=== PATIENT | male | born 1965 | race Caucasian/White ===

== ENCOUNTER 2016-09-14 02:49 | Inpatient (IN) | payer MEDICAID ==
[2016-09-14 03:09] LABS: % IMMATURE GRANULYOCYTES 0.6 % (0.0-1.1); ABSOLUTE IMMATURE GRANULOCYTES 0.05 10^3/uL (0.00-0.10); ADD DIFF? NO; ADD MORPH? NO; ADD SCAN? NO; ATYPICAL LYMPHOCYTE FLAG 30 (0-99); FRAGMENT RBC FLAG 0 (0-99); HEMATOCRIT 44.1 % (40.0-51.0); HEMOGLOBIN 15.2 g/dL (13.7-17.5); LEFT SHIFT FLG 0 (0-99); LIPEMIA HEMOLYSIS FLAG 90 (0-99); MEAN CELL HEMOGLOBIN 29.9 pg (27.9-34.1); MEAN CELL HEMOGLOBIN CONCENTR. 34.5 g/dL (32.4-36.7); MEAN CELL VOLUME 86.6 fL (81.5-99.8); MEAN PLATELET VOLUME 9.2 fL (8.7-11.7); PLATELET CLUMPS FLAG 10 (0-99); PLATELET COUNT 295 10^3/uL (150-400); RED BLOOD CELL COUNT 5.09 10^6/uL (4.40-6.38); RED CELL DISTRIBUTION WIDTH 13.2 % (11.5-15.2)
--- NOTE | 2016-09-14 03:15 | CPEKG ---
Heart Rate: 52 RR Interval: 1154 P-R Interval: 168 QRSD Interval: 96 QT Interval: 464 QTC Interval: 432 P Monclova: -13 QRS Monclova: 48 T Wave Monclova: 54 EKG Severity - ABNORMAL ECG - EKG Impression: SINUS RHYTHM EKG Impression: PROBABLE LEFT VENTRICULAR HYPERTROPHY Electronically Signed By: Jose Roberto Almanza 14-Sep-2016 06:00:29
[2016-09-14 03:17] LABS: ANION GAP 13 mEq/L (8-16); CALCIUM 9.7 mg/dL (8.5-10.4); CARBON DIOXIDE 28 mEq/l (22-31); CHLORIDE 100 mEq/L (97-110); ETHANOL SERUM < 10 mg/dL (0-10); GLOMERULAR FILTRATION RATE > 60; GLUCOSE 81 mg/dL (70-100); POTASSIUM 3.8 mEq/L (3.5-5.2); SODIUM 141 mEq/L (134-144)
--- NOTE | 2016-09-14 03:19 | EDPHY ---
HPI/HX/ROS/PE/MDM Narrative: Chief complaint: Depression, suicidal ideation, chest pain HPI: 51-year-old male recently admitted to this hospital for mental health admission for suicidal ideation. He was discharged on the of last month. He states he has a history of schizophrenia a and hallucinations. He lost his medications about a week ago. He was discharged from his recent admission on Lexapro 10 mg a day, Seroquel 150 mg at night. He also has a history of a pulmonary embolism diagnosed in June of last year for which he should be taking Eliquis 5 mg twice a day. Patient states he has not taken this for over a week as well. This morning he was feeling increasingly depressed and suicidal. States he is hearing voices that are telling him to harm himself. He states he has a plan to use a box office manager to slit his throat. While he was getting more distraught he began having discomfort in his chest which is similar to his prior PE pain. No fevers or chills. No cough. Did have a little bit of shortness of breath. ROS: 10 point Review of Systems is negative except as noted in the HPI. Past medical history: Hepatitis-C Substance abuse disorder Adjustment Disorder Pulmonary embolus Aortic valve disease Medications: Lexapro 10 mg daily, Seroquel 150 mg at night, Eliquis 5 mg twice a day. Allergies: No known drug allergies Physical exam: Gen: Awake, Alert, No Distress HEENT: Nose: no rhinorrhea Eyes: PERRLA, EOMI Mouth: Moist mucosa Neck: Supple, no JVD Chest: nontender, lungs clear to auscultation Heart: S1, S2 normal, no murmur Abd: Soft, non-tender, no guarding Back: no CVA tenderness, no midline tenderness Ext: no edema, non-tender Skin: no rash Neuro: CN II-XII intact, Sensation grossly intact, Strength 5/5 in bilateral upper and lower extremities (Jose Roberto Almanza) 1500: The patient is signed out to me at change of shift by Dr. Diogenes Arreola. I reviewed the chart. I went and personally evaluated the patient. At time of transfer care the patient was stable. No new complaints. I rechecked the patient on numerous occasions while here. He was stable throughout his stay. On recheck the patient was stable. I discussed the need for Eliquis with the nursing staff. 2300: The patient is signed out at change of shift to Dr. Lin. Patient will need ongoing twice daily dosing of Eliquis. (Jalyn Garrison) ED Course: EC sinus rhythm, normal axis, normal intervals, no acute ST or T-wave changes, are was consistent with possible LVH. Pt ECG, trop are negative. No evidence of acute cardiac cause of his pain. I suspect is related to his depression. He is medically cleared. 0530 patient seen by mental health pattern developer. Patient is actively suicidal. Was recently discharged from [address] [place] [address]. Plan will be to likely readmit in to that facility. I have signed the M1 hold. 0640 Pt s/o to Dr. Arreola pending placement. (Jose Roberto Almanza) Care assumed at 640am plan admit psych. Patient does not have current symptoms suggesting recurrent pulmonary embolism. Restarted on his Eliquis at 1:00 p.m.; will need 10 mg orally twice daily for 7 days and then transition to 5 mg dosing. Patient personally interviewed by myself at this time, says he has been off his anticoagulants for 10 days to 2 weeks. Restarting them discussed with the patient and consented. He tells me he was supposed to be on it for 6 months[address] Signed out to Dr. Jalyn Garrison at 3:00 p.m. with inpatient psychiatric placement pending. He will need additional dose 10 mg Eliquis later tonight. I wrote him for 10 mg p. o. twice daily at 9:00 a.m. and 2100. (Diogenes Arreola) MDM: This patient was seen by mental health and felt appropriate for inpatient disposition. There was a substantial concern regarding malingering during his past admission as well as his presentation today. However, after careful consideration, mental health felt that should be admitted for psychiatric reasons. 3:00 p.m.-this patient was signed over to Dr. Garrison at shift change. Disposition pending. (Flory Sandoval) - Data Points Laboratory Results: Laboratory Results 09/14/16 02:55 09/14/16 02:55 Medications Given: Discontinued Medications Apixaban (Eliquis) 10 mg PO EDNOW ONE Stop: 09/14/16 13:08 Last Admin: 09/14/16 13:55 Dose: 10 mg General Time Seen by Provider: 09/14/16 02:56 Initial Vital Signs: Initial Vital Signs Temperature (C) 36.6 C 09/14/16 03:00 Heart Rate 53 L 09/14/16 03:00 Respiratory Rate 18 09/14/16 03:00 Blood Pressure 134/101 H 09/14/16 03:00 O2 Sat (%) 98 09/14/16 03:00 O2 Delivery Mode Room Air Allergies/Adverse Reactions: No Known Allergies Allergy (Verified 07/10/16 14:30) Home Medications: Medication Instructions Recorded Apixaban [Eliquis] 5 mg PO BID #30 tab 09/05/16 Escitalopram Oxalate [Lexapro 10 10 mg PO DAILY #30 tab 09/05/16 MG] QUEtiapine FUMARATE [Seroquel 100 150 mg PO HS #30 tab 09/05/16 mg (*)] Departure - Departure Clinical Impression: Severe major depression, Suicidal ideation Condition: Fair Referrals: IN STATE,. [Primary Care Provider] - As per Instructions
[2016-09-14 03:28] LABS: TROPONIN I < 0.012 ng/mL (0-0.034)
[2016-09-14] MEDS ORDERED: APIXABAN 5 MG TAB PO ONE (13:07)
[2016-09-14] MEDS: APIXABAN 5 MG TAB PO SCH (22:34)
[2016-09-15] MEDS: APIXABAN 5 MG TAB PO SCH ×2 (09:29→20:29)
[2016-09-16] MEDS: APIXABAN 5 MG TAB PO SCH ×2 (10:00→21:00)
[2016-09-17] MEDS: APIXABAN 5 MG TAB PO SCH ×2 (15:51→20:54)
[2016-09-17] MEDS ORDERED: QUEtiapine FUMARATE 50 MG TAB PO PRN (19:00)
[2016-09-17] MEDS ORDERED: MAGNESIUM HYDROXIDE 30 ML UDCUP PO PRN (19:02)
[2016-09-17] MEDS ORDERED: ACETAMINOPHEN 325 MG TAB PO PRN (19:02)
[2016-09-17] MEDS ORDERED: NICOTINE POLACRILEX 2 MG GUM B PRN (19:02)
[2016-09-17] MEDS ORDERED: MAG HYDROX/AL HYDROX/SIMETH 30 ML UDCUP PO PRN (19:02)
[2016-09-17] MEDS: QUEtiapine FUMARATE 200 MG TAB PO SCH (20:54)
[2016-09-18] MEDS: buPROPion XL 150 MG TAB PO SCH (09:12)
[2016-09-18] MEDS: APIXABAN 5 MG TAB PO SCH ×2 (09:13→20:58)
[2016-09-18] MEDS: QUEtiapine FUMARATE 200 MG TAB PO SCH (20:59)
--- NOTE | 2016-09-19 02:03 | BAPA ---
[f rep st] ADMISSION PSYCHIATRIC ASSESSMENT DATE OF SERVICE: 09/18/2016 CHIEF COMPLAINT: "To go to groups and get the help I need this time." HISTORY OF PRESENT ILLNESS: The patient is a 51-year-old , homeless, unemployed male, who was at the [facility] intermediate a few days ago, and awakened with voices and increasing suicidal ideations. He apparently walked to the [facility] and complained of difficulty breathing and chest pains, asking someone there to call 911. Upon arrival to [facility] ED, he reported having suicidal ideation and was placed on an M1 hold on September 14, 2016. He continued to voice suicidal ideation, stating he hid a knife when he left the intermediate, and planned to kill himself if discharged. He was recently discharged from inpatient psychiatry [address] [place] [address] on September 05 without medications, and states he was instructed to follow up with [facility] the following day. He report showing up, but "no one knew about it," and has since stayed in shelters off medication and with no followup. He admitted using cocaine and, unlike on previous admission (when he refused to acknowledge a substance use problem, stating it was a symptom of his primary depression problem), on current interview, patient stated he was ready to get the help he needed for his substance use because cocaine was a problem. He admitted using cocaine not just when depressed, but also at times when he is feeling good, and has not been able to successfully maintain sobriety from substances. "I deal with addiction, it's never a lot, but it worsens my spiral. " He admits that, "If I don't deal with my addiction, I won't get better." He does report have suicidal thoughts and voices telling him to harm himself. 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 He denied feeling depressed during this time, nor using substances, but now feels his spirituality is no longer a strength. He talked of how could God allow a 7-year-old in a pond exposed in the news recently. He said previously that his parents were very judaism, and the only thing that had prevented him from committing suicide in the past was a belief that that would subject you to Hell for all eternity, "But I don't believe that anymore...I'm not going to be a liability." Due to his history of poor engagement in treatment and apparent malingering, he was not admitted upon initial presentation to the emergency room. He was there since September 14, 2016, and is currently on his second mental health hold, initiated September 17, 2016, at 0840. ED staff was unable to discharge him due to his self-harm threats. Patient reported sleep was irregular, mood was depressed. In discussing medications, he stated, "You can get my meds for my mind and heart rate, but as there is no place to lay my head, I am not able to function or work." He is also adding that he recognizes his substance use has caused many of his problems including affecting his mood. PAST PSYCHIATRIC HISTORY: Per [facility] evaluation having been hospitalized multiple times, including 3 inpatient and 2 [facility] stays in the past 4 months. Reports prior suicide attempts including overdosed on Wellbutrin this past summer. Most recently he was discharged with Seroquel 150 mg p.o. q.h.s. and Lexapro 10 mg daily, but reportedly did not fill these prescriptions after discharge. Most recently discharged from [address] [place] [address] on September 05, 2016. He participated minimally in treatment during his hospital stay. He is an [facility] client who sees Dr. Hillman and Corrie Ricks for therapy through [facility], but has missed several appointments in the past. PAST MEDICAL HISTORY: Recent pulmonary embolus, inpatient at [facility] in June 2016, was taking medication for this, Eliquis, but not compliant recently. SOCIAL HISTORY: . Unemployed. Some college. Homeless. In [place] since 2004 from [place]. Has been x15 years. 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 History of working 2 full-time jobs and doing well, making $39 per hour, but lost everything once he lost his job. Minimal social support. Does maintain contact with one son who is in [place], by text messaging. LEGAL: No reported current legal issues. Last arrested for drug possession in 2009. SUBSTANCE USE HISTORY: Marijuana, cocaine. Denied alcohol or other substance use. MENTAL STATUS EXAM: On admission, patient was calm, cooperative, with fair to good eye contact. Normal volume and rate of speech. Edentulous. Mood was depressed. Affect was restricted. Thought processes linear and goal directed. No flight of ideas or tangentiality. Thought content: Patient endorses suicidal ideation 9 out of 10, but denied any plan to harm self. Failed to endorse auditory hallucination, chronic, intermittent, but did not appear responding to internal stimuli; denied any HI or other psychotic symptoms. No evidence of delusions. Insight fair, good into substance use being a problem. Judgement limited. Cognition seemed conversationally intact. He was alert and oriented x4. IMPRESSION: A 51-year-old , homeless, unemployed male who was recently discharged from inpatient psychiatry, but was noncompliant with medications, and presented to the emergency department medically, but then reported suicidal ideation with plan and intent. He was placed on 2 [id number] M-1 holds, as no one was able to place him anywhere or discharge him due to his suicidal threats. Drug screen was positive for marijuana and cocaine on admission on September 14, 2016, to the emergency department, although during previous hospitalization, patient reported depression was his primary problem, he readily stated, "I have a problem with drug addiction," and wants to get help for this as well. Although patient is with clear secondary gain for hospitalization due to his homelessness, he does consistently report suicidal ideation and having a plan, and will likely chronically be at risk for self-harm , especially with poor followup and active substance use. He is currently willing to restart medication, and at time of interview already reported attending 2 groups. Presentation again concerning for secondary gain, but expresses motivation to engage in treatment "this time," and also to address substance use as a problem which he previously denied was an issue. DIAGNOSIS: Cocaine use disorder Depression unspecified history of PE homeless, financial stress, limited social supports. PLAN: Patient is on M1 hold. Anticipate patient would have no problem signing in as a voluntary patient. Will restart Seroquel at that time for now. Will need to assess patient's motivation for continuing with medications post discharge, and whether it makes any sense to continue with regularly scheduled medications given his history. He is expressing motivation for dual-diagnosis treatment at this time. ESTIMATED LENGTH OF STAY: 2 to 3 days. /[id number]/MODL MTDD
[2016-09-19] MEDS: buPROPion XL 150 MG TAB PO SCH (09:10)
[2016-09-19] MEDS: APIXABAN 5 MG TAB PO SCH ×2 (09:11→20:52)
[2016-09-19] MEDS: hydrOXYzine HCL 25 MG TAB PO PRN (10:11)
--- NOTE | 2016-09-19 10:59 | SOAPPROG ---
SOAP Progress Note Assessment/Plan: Assessment: Pt is a 51 y/o C male with a hx of cocaine dependence. This is his 3rd admission while homeless for SI and AH with a strong suspicion of malingering. Last 2 times he stayed in bed the whole time and the last admission he minimized he substance abuse problem and did not participate in any group and did not tack picker his Rx's when he left. He was again + for THC and Cocaine. Plan:con't current meds Pt will sign in vol 09/19/16 10:56 Subjective: "Depressed." Objective: Vital Signs Temp Pulse Resp BP Pulse Ox 36.6 C 57 L 12 135/82 H 94 09/19/16 05:43 09/19/16 05:43 09/19/16 05:43 09/19/16 05:43 09/19/16 05:43 09/18/16 09/19/16 09/20/16 05:59 05:59 05:59 Intake Total 1000 Balance 1000 Pt is A+O x4 mood-depressed affect-appr +SI but contracts for safety thoughts-logical, coherent thoughts-negative speech-wnl memory-intact [id number] appetite-good energy-fair no delusions no ISABELA I/J-limited - Time Spent With Patient Time Spent With Patient: 25' - Pending Discharge Pending Discharge Within 24 Hours: No Pending Discharge Within 48 Hours: No ICD10 Worksheet Patient Problems: Problems Problem Status Diagnosed Severe major depression Acute Suicidal ideation Acute Adjustment disorder with depressed mood Acute Attempted suicide Acute Polysubstance abuse Acute Pulmonary embolism Acute
[2016-09-19] MEDS: QUEtiapine FUMARATE 200 MG TAB PO SCH (20:53)
[2016-09-20 06:22] VITALS: TEMP 98.2; O2SAT 93
[2016-09-20] MEDS: buPROPion XL 150 MG TAB PO SCH (09:46)
[2016-09-20] MEDS ORDERED: QUEtiapine FUMARATE 200 MG TAB PO SCH (10:49)
--- NOTE | 2016-09-20 10:53 | SOAPPROG ---
SOAP Progress Note Assessment/Plan: Assessment: Pt is a 51 y/o C male with a hx of cocaine dependence. This is his 3rd admission while homeless for SI and AH with a strong suspicion of malingering. Last 2 times he stayed in bed the whole time and the last admission he minimized he substance abuse problem and did not participate in any group and did not shredder picker his Rx's when he left. He was again + for THC and Cocaine. Plan: will continue Wellbutrin-pt looks much brighter today Pt is vol pt requests to shave-will D/C SP and write shave order Will decrease Seroquel to 150mg QHS which is previous dose will add Prazosin 2mg QHS for PTSD related nightmares 09/20/16 10:50 Subjective: "I'm tired of feeling sorry for myself," said pt smiling Objective: Vital Signs Temp Pulse Resp BP Pulse Ox 36.8 C 63 16 137/89 H 93 09/20/16 06:00 09/20/16 06:00 09/20/16 06:00 09/20/16 06:00 09/20/16 06:00 Pt is A+O x4 mood-brighter no active SI or HI no A/V H thoughts-logical speech-wnl memory-intact no sx psychosis/bryan sleep-poor due to nightmares +sedation from Seroquel at night good appetite conc-improving no ISABELA I/J-improving - Time Spent With Patient Time Spent With Patient: 25' - Pending Discharge Pending Discharge Within 24 Hours: No Pending Discharge Within 48 Hours: No ICD10 Worksheet Patient Problems: Problems Problem Status Diagnosed Severe major depression Acute Suicidal ideation Acute Adjustment disorder with depressed mood Acute Attempted suicide Acute Polysubstance abuse Acute Pulmonary embolism Acute
[2016-09-20] MEDS: APIXABAN 5 MG TAB PO SCH ×2 (10:54→20:48)
[2016-09-20] MEDS: hydrOXYzine HCL 25 MG TAB PO PRN (15:32)
[2016-09-20] MEDS ORDERED: QUEtiapine FUMARATE 50 MG TAB PO SCH (21:00)
[2016-09-20] MEDS ORDERED: QUEtiapine FUMARATE 100 MG TAB PO SCH (21:00)
[2016-09-20] MEDS ORDERED: PRAZOSIN HCL 1 MG CAP PO SCH (21:00)
[2016-09-21] MEDS: hydrOXYzine HCL 25 MG TAB PO PRN (03:46)
[2016-09-21 06:25] VITALS: BP 124/60; PULSE 79; RESP 14
[2016-09-21] MEDS: APIXABAN 5 MG TAB PO SCH ×2 (09:02→11:32)
[2016-09-21] MEDS: buPROPion XL 150 MG TAB PO SCH (09:03)
[2016-09-21] MEDS ORDERED: APIXABAN 5 MG TAB PO ONE (11:00)
--- NOTE | 2016-09-21 13:17 | BDS ---
[ rep st] BEHAVIORAL HEALTH DISCHARGE SUMMARY CHIEF COMPLAINT: "To go to groups and get the help I need this time." HISTORY OF PRESENT ILLNESS: Patient is a 51-year-old , homeless, unemployed male who was at the [facility] a few days prior to admission and reported he awakened with voices and increasing suicidal ideation. He apparently walked to the [facility] and complained of difficulty breathing and chest pain, asking someone there to call 911. Upon arrival to the [facility] ED, he reported having suicidal ideation and was placed on an M1 hold on September 14, 2016. He continued to voice suicidal ideation, stating he had a knife when he left the [facility] and planned to kill himself if released. He was recently discharged from our inpatient facility, [address] [place] [address], on September 05 without medication. The patient was given prescriptions but refused to pick them up when he left the unit. He stated that he was not given medication and did not follow up at [facility]. Patient has a history of cocaine addiction, and this time the patient stated he was ready to get help and admit he has a cocaine problem. The patient finally admitted that he uses cocaine not only when he is depressed, but at times when he is feeling good, and has been not able to successfully maintain sobriety from substances and this time he would attend groups and work on his treatment. HOSPITAL COURSE: The patient did attend groups this time. He admitted he had a cocaine problem and that he used even when he was not depressed. He was put back on Wellbutrin 300 mg daily and Seroquel 200 mg q.h.s. for auditory, hallucinations which was decreased to 150 mg at h.s. He was also put on prazosin 2 mg q.h.s. for trauma-related nightmares. His mood improved significantly. He signed in voluntarily when his M1 . Then upon the day of discharge, he requested discharge. He was smiling, with a positive attitude and mood and stated he was ready to go and that he wanted to go back to work. CBC was normal. Chem panel was normal. U tox was positive for cocaine and marijuana. DISCHARGE MEDICATIONS: Wellbutrin 300 mg daily, Eliquis 10 mg q.12 hours, prazosin 2 mg q.h.s., Seroquel 150 mg q.h.s., and hydroxyzine 20-50 mg q.6 hours p.r.n. anxiety. The patient was told to abstain from cocaine, alcohol, marijuana, and all other nonprescription medications. ADMISSION DIAGNOSES: 1. Substance-induced mood disorder. 2. Posttraumatic stress disorder by history. 3. Cocaine and cannabis use disorder, severe. 4. Patient with a history of pulmonary embolus, currently on Eliquis. DISCHARGE DIAGNOSES: SAME ABOVE Global Assessment of Functioning on admission was 20. Global Assessment of Functioning on discharge was 60. DISCHARGE MENTAL STATUS: Patient is alert and oriented x4. Mood is bright. Affect is appropriate. Thoughts logical and coherent. Speech normal rate and rhythm. No suicidal or homicidal ideation. No auditory or visual hallucinations. No symptoms of psychosis or bryan. Sleep, appetite, and energy level are good. IQ, fund of knowledge, concentration, and memory are intact. No suicidal or homicidal ideation. No auditory or visual hallucinations. Insight and judgment are improved since admission. PLAN: The patient will follow up with [facility]. He is discharged voluntarily. He states he has an appointment set up and will either be staying at the [facility] or with people he knows. He is psychiatrically and medically stable for discharge. /[id number]/MODL MTDD
[2016-09-21] MEDS ORDERED: APIXABAN 5 MG TAB PO SCH (21:00)
== END 2016-09-21 13:15 | disposition home or self-care (01) | DRG 897 ==
LOC: EDUNIT# → BBEH 09-17 02:48
PROVIDERS: ADMIT Psychiatry & Neurology Behavioral Neurology & Neuropsychiatry; ATTEND Psychiatry & Neurology Psychiatry
DX: F14.24 Cocaine dependence with cocaine-induced mood disorder (principal); F14.229 Cocaine dependence with intoxication, unspecified; F12.188 Cannabis abuse with other cannabis-induced disorder; F12.229 Cannabis dependence with intoxication, unspecified; R45.851 Suicidal ideations; F43.12 Post-traumatic stress disorder, chronic; Z86.711 Personal history of pulmonary embolism; Z79.01 Long term (current) use of anticoagulants; Z59.0 Homelessness
CPT/HCPCS: 80305; G0480

== ENCOUNTER 2016-09-27 02:06 | Emergency (ER) | payer MEDICAID ==
--- NOTE | 2016-09-27 02:08 | EDPHY ---
H & P HPI/ROS: HPI CHIEF COMPLAINT: M1 hold, suicidal HISTORY OF PRESENT ILLNESS: This patient 51-year-old male significant past medical history of PTSD, depression, anxiety and hepatitis C presents to the emergency room by police on M1 hold for suicidal ideation. Patient tells me that he went outside today he is homeless he was sleeping outside with very: Temperature is the point of sleeping outside being supposed to very cold temperatures his to kill himself. He states he was she did not wake up. Denies drug use or alcohol. Currently tells me that he is very depressed and suicidal. Past Medical History: PTSD, anxiety, hepatitis-C Past Surgical History: denies significant surgical history Social History: Homeless, denies use of tobacco or alcohol does smoke marijuana occasionally Family History: noncontributory ROS REVIEW OF SYSTEMS: A comprehensive 10 point review of systems is otherwise negative aside from elements mentioned in the history of present illness. Exam Constitutional appears well nontoxic triage nursing summary reviewed, vital signs reviewed, awake/alert. Eyes normal conjunctivae and sclera, EOMI, PERRLA. HENT normal inspection, atraumatic, moist mucus membranes, no epistaxis, neck supple/ no meningismus, no raccoon eyes. Respiratory clear to auscultation bilaterally, normal breath sounds, no respiratory distress, no wheezing. Cardiovascular rate normal, regular rhythm, no murmur, no edema, distal pulses normal. Gastrointestinal soft, non-tender, no rebound, no guarding, normal bowel sounds, no distension, no pulsatile mass. Genitourinary no CVA tenderness. Musculoskeletal no midline vertebral tenderness, full range of motion, no calf swelling, no tenderness of extremities, no meningismus, good pulses, neurovascularly intact. Skin pink, warm, & dry, no rash, skin atraumatic. Neurologic awake, alert and oriented x 3, AAOx3, moves all 4 extremities equally, motor intact, sensory intact, CN II-XII intact, normal cerebellar, normal vision, normal speech. Psychiatric Flat affect Heme/Lymph/Immune no lymphadenopathy. Differential Diagnosis: includes but is not limited to in a particular order, suicidal ideation, depression, anxiety, PTSD, malingering, jail seeking Medical Decision Making: This patient will have a IV established will check blood work for medical clearance he is on M1 hold by police will need mental health evaluation. Source: Patient - Personal History Tetanus Vaccine Date: within 10 years date unknown - Medical/Surgical History Hx Asthma: No Hx Chronic Respiratory Disease: No Hx Diabetes: No Hx Cardiac Disease: No Hx Renal Disease: No Hx Cirrhosis: No Hx Alcoholism: No Hx HIV/AIDS: No Hx Splenectomy or Spleen Trauma: No Other PMH: Hep C, MITRAL VALVE PROLAPSE, PE non complaint on Blood thinner, gilma suarez at [facility]. closed head inj 1986 - Social History Smoking Status: Current every day smoker Allergies/Adverse Reactions: No Known Allergies Allergy (Verified 07/10/16 14:30) Home Medications: Medication Instructions Recorded Bupropion HCl [Bupropion Xl] 300 mg PO DAILY 09/17/16 Apixaban [Eliquis] 10 mg PO BID #30 tab 09/21/16 Prazosin HCl [Minipress 1mg (*)] 2 mg PO HS #30 cap 09/21/16 QUEtiapine FUMARATE [Seroquel 100 100 mg PO HS #30 tab 09/21/16 mg (*)] QUEtiapine FUMARATE [Seroquel 50 50 mg PO HS #30 tab 09/21/16 mg (*)] buPROPion XL [Wellbutrin 150mg XL] 300 mg PO DAILY #60 tab 09/21/16 hydrOXYzine HCL [hydrOXYzine HCL 25 - 50 mg PO Q6 PRN #30 tab 09/21/16 (RX)] Departure - Departure Disposition: Home, Routine, Self-Care Clinical Impression: Depression Condition: Fair
[2016-09-27 02:33] VITALS: RESP 16; TEMP 97.5
[2016-09-27 03:33] LABS: % IMMATURE GRANULYOCYTES 0.4 % (0.0-1.1); ABSOLUTE IMMATURE GRANULOCYTES 0.03 10^3/uL (0.00-0.10); ADD DIFF? NO; ADD MORPH? NO; ADD SCAN? NO; ATYPICAL LYMPHOCYTE FLAG 10 (0-99); FRAGMENT RBC FLAG 0 (0-99); HEMATOCRIT 41.6 % (40.0-51.0); HEMOGLOBIN 14.1 g/dL (13.7-17.5); LEFT SHIFT FLG 0 (0-99); LIPEMIA HEMOLYSIS FLAG 90 (0-99); MEAN CELL HEMOGLOBIN 29.9 pg (27.9-34.1); MEAN CELL HEMOGLOBIN CONCENTR. 33.9 g/dL (32.4-36.7); MEAN CELL VOLUME 88.1 fL (81.5-99.8); PLATELET CLUMPS FLAG 10 (0-99); PLATELET COUNT 247 10^3/uL (150-400); RED BLOOD CELL COUNT 4.72 10^6/uL (4.40-6.38); RED CELL DISTRIBUTION WIDTH 13.3 % (11.5-15.2)
[2016-09-27 03:47] LABS: ANION GAP 6 mEq/L (8-16); CALCIUM 9.1 mg/dL (8.5-10.4); CARBON DIOXIDE 27 mEq/l (22-31); CHLORIDE 107 mEq/L (97-110); CREATININE 0.8 mg/dL (0.7-1.3); ETHANOL SERUM < 10 mg/dL (0-10); GLOMERULAR FILTRATION RATE > 60; GLUCOSE 121 mg/dL (70-100); POTASSIUM 3.7 mEq/L (3.5-5.2); SALICYLATE < 1.0 mg/dL (2.0-20.0); SODIUM 140 mEq/L (134-144)
[2016-09-27 08:59] VITALS: BP 143/88; PULSE 53; O2SAT 94
== END 2016-09-27 09:39 | disposition home or self-care (01) ==
DX: F32.9 Major depressive disorder, single episode, unspecified (principal); F17.200 Nicotine dependence, unspecified, uncomplicated
CPT/HCPCS: 80305; G0480

== ENCOUNTER 2017-04-11 21:50 | Inpatient (IN) | payer MEDICAID ==
[2017-04-11] MEDS ORDERED: NS 1,000 ML IV ONE (22:00)
--- NOTE | 2017-04-11 22:00 | EDPHY ---
HPI/HX/ROS/PE/MDM Narrative: CHIEF COMPLAINT: Overdose HISTORY OF PRESENT ILLNESS: The patient is a 51-year-old male, brought in by EMS , with overdose. [place] He took 28 300mg Seroquel around 8pm. The patient received the prescription for Seroquel two days ago. He took all of it tonight. The patient has a history of SI, he states he was trying to hurt himself tonight. He called the crisis center 1 hour after he took the Seroquel. The patient used marijuana tonight. No alcohol use. No Tylenol, Ibuprofen, or Aspirin use. REVIEW OF SYSTEMS: Aside from elements discussed in the HPI, a comprehensive 10-point review of systems was reviewed and is negative. PAST MEDICAL HISTORY: Depression, Anxiety. SOCIAL HISTORY: Homeless. VITAL SIGNS: Reviewed by me GENERAL: Well-developed, well-nourished, Slowed speech. Appears sleepy, in no respiratory distress. HEENT: Atraumatic. 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 (chronic issue) Horizontal nystagmus. Mouth: dry mucous membranes. No erythema or lesions. No drooling. Positive gag reflex. Neck: supple with no adenopathy. LUNGS: Clear to auscultation bilaterally, no wheezes, rhonchi or rales. CARDIAC: Regular rate and rhythm, no rubs, murmurs or gallops. ABDOMEN: Soft, nontender, nondistended, bowel sounds normal. BACK: No CVA tenderness. EXTREMITIES: No trauma. No edema. Range of motion is normal throughout. NEURO: Somnolent but arousable. Oriented x3. Thick speech. Moving all extremities x4. Grossly nonfocal. SKIN: Warm and dry, no rash. PSYCHIATRIC: Normal mentation, no agitation. ED Course: Patient presents with overdose on Seroquel. Patient took 28 300mg Seroquel XL at 8pm. He states he was trying to harm himself. Plan for lab work. I will check acetaminophen level. EKG ordered. The 12 lead EKG was interpreted by myself. See hard copy and/or "tracemaster" electronic copy for interpretation: Sinus rhythm. Patient's course was discussed with poison Center. They advised ongoing monitoring for total 24 hours. Serial EKGs and monitoring to evaluate for prolongation of the QT or QRS S. Also advised evaluation for coIngestions. Repeat EKG: Sinus rhythm, no QRS widening, no QT widening. Patient's course was discussed with Dr. Vito Govea. Patient will be admitted to the intensive care unit for close monitoring of his respiratory status, monitoring to ensure ongoing airway protection. Patient was placed on an M1 hold by the police. At the time of admission to the intensive care unit the patient is somnolent but arouses to voice, not drooling, normal sats, normal end-tidal CO2, and a positive gag reflex. I do not believe patient requires intubation at this time, but close monitoring is certainly indicated. MDM: Differential diagnoses for the patient's symptom complex was considered including but not limited to Seroquel overdose, Tylenol overdose, drug or alcohol intoxication, drug or alcohol withdrawal, cardiovascular affects of antipsychotics, potential for seizure, somnolence, suicidal ideation. - Data Points Laboratory Results: Laboratory Results 04/11/17 21:45 04/11/17 21:45 04/11/17 04/11/17 04/11/17 23:00 21:45 21:45 WBC 7.39 10^3/uL 10^3/uL (3.80-9.50) RBC 5.09 10^6/uL 10^6/uL (4.40-6.38) Hgb 15.8 g/dL g/dL (13.7-17.5) Hct 46.2 % % (40.0-51.0) MCV 90.8 fL fL (81.5-99.8) MCH 31.0 pg pg (27.9-34.1) MCHC 34.2 g/dL g/dL (32.4-36.7) RDW 12.9 % % (11.5-15.2) Plt Count 259 10^3/uL 10^3/uL (150-400) MPV 9.8 fL fL (8.7-11.7) Neut % (Auto) 65.4 % % (39.3-74.2) Lymph % (Auto) 25.6 % % (15.0-45.0) [place] % (Auto) 6.6 % % (4.5-13.0) Eos % (Auto) 1.4 % % (0.6-7.6) Baso % (Auto) 0.7 % % (0.3-1.7) Nucleat RBC Rel Count 0.0 % % (0.0-0.2) Absolute Neuts (auto) 4.84 10^3/uL 10^3/uL (1.70-6.50) Absolute Lymphs (auto) 1.89 10^3/uL 10^3/uL (1.00-3.00) Absolute Monos (auto) 0.49 10^3/uL 10^3/uL (0.30-0.80) Absolute Eos (auto) 0.10 10^3/uL 10^3/uL (0.03-0.40) Absolute Basos (auto) 0.05 10^3/uL 10^3/uL (0.02-0.10) Absolute Nucleated RBC 0.00 10^3/uL 10^3/uL (0-0.01) Immature Gran % 0.3 % % (0.0-1.1) Immature Gran # 0.02 10^3/uL 10^3/uL (0.00-0.10) Sodium 142 mEq/L mEq/L (134-144) Potassium 4.2 mEq/L mEq/L (3.5-5.2) Chloride 109 mEq/L mEq/L (97-110) Carbon Dioxide 21 mEq/l L mEq/l (22-31) Anion Gap 12 mEq/L mEq/L (8-16) BUN 22 mg/dL mg/dL (7-23) Creatinine 1.1 mg/dL mg/dL (0.7-1.3) Estimated GFR > 60 Glucose 95 mg/dL mg/dL (70-100) Calcium 10.4 mg/dL mg/dL (8.5-10.4) Salicylates < 1.0 mg/dL L mg/dL (2.0-20.0) Urine Opiates Screen Pending Acetaminophen < 10 mcg/mL L mcg/mL (10.0-30.0) Urine Barbiturates Pending Ur Phencyclidine Scrn Pending Ur Amphetamine Screen Pending U Benzodiazepines Scrn Pending Urine Cocaine Screen Pending U Marijuana (THC) Screen Pending Ethyl Alcohol < 10 mg/dL mg/dL (0-10) Medications Given: Discontinued Medications Sodium Chloride (Ns) 1,000 mls @ 0 mls/hr IV ONCE ONE; Wide Open PRN Reason: Protocol Stop: 04/11/17 22:01 Last Admin: 04/11/17 22:07 Dose: 1,000 mls General Initial Vital Signs: Initial Vital Signs Temperature (C) 36.9 C 04/11/17 22:04 Heart Rate 93 04/11/17 22:04 Respiratory Rate 18 04/11/17 22:04 Blood Pressure 139/85 H 04/11/17 22:04 O2 Sat (%) 94 04/11/17 22:04 O2 Delivery Mode Room Air Allergies/Adverse Reactions: No Known Allergies Allergy (Verified 09/27/16 02:32) Home Medications: Medication Instructions Recorded Unobtainable 04/12/17 Departure - Departure Disposition: [facility] Inpatient Acute Clinical Impression: Overdose, Suicidal ideation, Severe major depression, Altered mental status Condition: Serious Report Scribed for: Lizzie Rodarte Report Scribed by: Brianna Pemberton Date of Report: 04/11/17 Time of Report: 22:00 Physician Review and Approval Statement: Portions of this note were transcribed by a medical and health services manager. I personally performed a history, physical exam, medical decision making, and confirmed accuracy of information the transcribed note.
[2017-04-11 22:08] LABS: % IMMATURE GRANULYOCYTES 0.3 % (0.0-1.1); ABSOLUTE IMMATURE GRANULOCYTES 0.02 10^3/uL (0.00-0.10); ADD DIFF? NO; ADD MORPH? NO; ADD SCAN? NO; ATYPICAL LYMPHOCYTE FLAG 10 (0-99); FRAGMENT RBC FLAG 0 (0-99); HEMATOCRIT 46.2 % (40.0-51.0); HEMOGLOBIN 15.8 g/dL (13.7-17.5); LEFT SHIFT FLG 0 (0-99); LIPEMIA HEMOLYSIS FLAG 90 (0-99); MEAN CELL HEMOGLOBIN CONCENTR. 34.2 g/dL (32.4-36.7); MEAN CELL VOLUME 90.8 fL (81.5-99.8); MEAN PLATELET VOLUME 9.8 fL (8.7-11.7); PLATELET CLUMPS FLAG 10 (0-99); PLATELET COUNT 259 10^3/uL (150-400); RED BLOOD CELL COUNT 5.09 10^6/uL (4.40-6.38); RED CELL DISTRIBUTION WIDTH 12.9 % (11.5-15.2)
--- NOTE | 2017-04-11 22:13 | CPEKG ---
Heart Rate: 84 RR Interval: 714 P-R Interval: 148 QRSD Interval: 92 QT Interval: 344 QTC Interval: 407 P [place]: 0 QRS [place]: 41 T Wave [place]: 32 EKG Severity - ABNORMAL ECG - EKG Impression: SINUS RHYTHM EKG Impression: CONSIDER LEFT VENTRICULAR HYPERTROPHY Electronically Signed By: Lizzie Rodarte 12-Apr-2017 00:43:38
[2017-04-11 22:20] LABS: ANION GAP 12 mEq/L (8-16); CALCIUM 10.4 mg/dL (8.5-10.4); CARBON DIOXIDE 21 mEq/l (22-31); CHLORIDE 109 mEq/L (97-110); CREATININE 1.1 mg/dL (0.7-1.3); ETHANOL SERUM < 10 mg/dL (0-10); GLOMERULAR FILTRATION RATE > 60; GLUCOSE 95 mg/dL (70-100); POTASSIUM 4.2 mEq/L (3.5-5.2); SALICYLATE < 1.0 mg/dL (2.0-20.0); SODIUM 142 mEq/L (134-144)
--- NOTE | 2017-04-12 02:05 | CPEKG ---
Heart Rate: 67 RR Interval: 896 P-R Interval: 168 QRSD Interval: 92 QT Interval: 400 QTC Interval: 423 P [place]: -8 QRS [place]: 30 T Wave [place]: 35 EKG Severity - NORMAL ECG - EKG Impression: SINUS RHYTHM Electronically Signed By: Nehemias Camacho 13-Apr-2017 17:33:51
--- NOTE | 2017-04-12 03:24 | PDGENHP ---
History and Physical - Chief Complaint Suicide attempt - History of Present Illness Mr. Keny Bustamante is a 51 yo M w/ hx of depression, pulmonary embolism, polysubstance abuse, and homelessness brought to ED today after suicide attempt via overdose. Per EMS, patient ingested 28 Seroquel 300 mg XR capsules. By the time of my evaluation, patient was arousable but would immediately fall back asleep upon waking. He was unable to provide additional history as a result. History Information - Allergies/Home Medication List Allergies/Adverse Reactions: No Known Allergies Allergy (Verified 09/27/16 02:32) Home Medications: Bupropion HCl [Bupropion Xl] 300 mg PO DAILY 09/17/16 [Last Taken 09/03/16] I have personally reviewed and updated: medical history - Past Medical History pulmonary embolism Additional medical history: Depression - Surgical History Reports: no pertinent surgical hx - Family History Additional family history: Unable to obtain due to somnolence - Social History Smoking Status: Current every day smoker Drug Use: Cocaine Review of Systems Review of Systems: Unable to obtain due to somnolence Physical Exam Temp Pulse Resp BP Pulse Ox 36.7 C 66 14 123/66 H 95 04/12/17 01:00 04/12/17 02:00 04/12/17 02:00 04/12/17 02:00 04/12/17 02:00 Constitutional: other (Somnolent, arousable to minor stimuli) Eyes: PERRL, EOMI Ears, Nose, Mouth, Throat: moist mucous membranes, no oral mucosal ulcers Cardiovascular: regular rate and rhythym, no murmur, rub, or gallop Respiratory: no respiratory distress, clear to auscultation Gastrointestinal: normoactive bowel sounds, soft, non-tender abdomen Skin: warm, no rashes or abrasions Neurologic: other (Somnolent), No facial droop Psychiatric: depressed, suicidal ideation Lab Data & Imaging Review 04/11/17 21:45 04/11/17 21:45 WBC 7.39 10^3/uL (3.80-9.50) 04/11/17 21:45 RBC 5.09 10^6/uL (4.40-6.38) 04/11/17 21:45 Hgb 15.8 g/dL (13.7-17.5) 04/11/17 21:45 Hct 46.2 % (40.0-51.0) 04/11/17 21:45 MCV 90.8 fL (81.5-99.8) 04/11/17 21:45 MCH 31.0 pg (27.9-34.1) 04/11/17 21:45 MCHC 34.2 g/dL (32.4-36.7) 04/11/17 21:45 RDW 12.9 % (11.5-15.2) 04/11/17 21:45 Plt Count 259 10^3/uL (150-400) 04/11/17 21:45 MPV 9.8 fL (8.7-11.7) 04/11/17 21:45 Neut % (Auto) 65.4 % (39.3-74.2) 04/11/17 21:45 Lymph % (Auto) 25.6 % (15.0-45.0) 04/11/17 21:45 [place] % (Auto) 6.6 % (4.5-13.0) 04/11/17 21:45 Eos % (Auto) 1.4 % (0.6-7.6) 04/11/17 21:45 Baso % (Auto) 0.7 % (0.3-1.7) 04/11/17 21:45 Nucleat RBC Rel Count 0.0 % (0.0-0.2) 04/11/17 21:45 Absolute Neuts (auto) 4.84 10^3/uL (1.70-6.50) 04/11/17 21:45 Absolute Lymphs (auto) 1.89 10^3/uL (1.00-3.00) 04/11/17 21:45 Absolute Monos (auto) 0.49 10^3/uL (0.30-0.80) 04/11/17 21:45 Absolute Eos (auto) 0.10 10^3/uL (0.03-0.40) 04/11/17 21:45 Absolute Basos (auto) 0.05 10^3/uL (0.02-0.10) 04/11/17 21:45 Absolute Nucleated RBC 0.00 10^3/uL (0-0.01) 04/11/17 21:45 Immature Gran % 0.3 % (0.0-1.1) 04/11/17 21:45 Immature Gran # 0.02 10^3/uL (0.00-0.10) 04/11/17 21:45 Sodium 142 mEq/L (134-144) 04/11/17 21:45 Potassium 4.2 mEq/L (3.5-5.2) 04/11/17 21:45 Chloride 109 mEq/L (97-110) 04/11/17 21:45 Carbon Dioxide 21 mEq/l (22-31) L 04/11/17 21:45 Anion Gap 12 mEq/L (8-16) 04/11/17 21:45 BUN 22 mg/dL (7-23) 04/11/17 21:45 Creatinine 1.1 mg/dL (0.7-1.3) 04/11/17 21:45 Estimated GFR > 60 04/11/17 21:45 Glucose 95 mg/dL (70-100) 04/11/17 21:45 Calcium 10.4 mg/dL (8.5-10.4) 04/11/17 21:45 Salicylates < 1.0 mg/dL (2.0-20.0) L 04/11/17 21:45 Urine Opiates Screen NEGATIVE (NEGATIVE) 04/11/17 23:00 Acetaminophen < 10 mcg/mL (10.0-30.0) L 04/11/17 21:45 Urine Barbiturates NEGATIVE (NEGATIVE) 04/11/17 23:00 Ur Phencyclidine Scrn NEGATIVE (NEGATIVE) 04/11/17 23:00 Ur Amphetamine Screen NEGATIVE (NEGATIVE) 04/11/17 23:00 U Benzodiazepines Scrn NEGATIVE (NEGATIVE) 04/11/17 23:00 Urine Cocaine Screen NEGATIVE (NEGATIVE) 04/11/17 23:00 U Marijuana (THC) Screen NON-NEGATIVE (NEGATIVE) H 04/11/17 23:00 Ethyl Alcohol < 10 mg/dL (0-10) 04/11/17 21:45 Visualized and Interpreted EKG results: Yes EKG Interpretation: Positive for: other (Qtc 430 and QRS WNL) Assessment & Plan Assessment: Mr. Keny Bustamante is a 51 yo M w/ hx of depression, pulmonary embolism, polysubstance abuse, and homelessness brought to ED today after suicide attempt via overdose of Seroquel. Plan: 1. Toxic ingestion - Patient consumed 28 Seroquel 300 mg XR tabs in a suicide attempt. Per ED conversation with Poison Control Center, will monitor ECG (QTc, QRS) and mental status. Currently somnolent but stable and protecting airway. APAP and ASA levels negative. Utox notable for marijuana. - Monitor on telemetry - q4H ECG - Monitor in ICU to assure patient continues to adequately protect airway 2. Major depression with suicidal ideation - With acute toxic ingestion as noted above. Has been hospitalized previously for this, most recently in September of 2016 per our records. Placed on M1 hold. Will consult psychiatry. 3. Hx of pulmonary embolism - Diagnosed on 06/26 after syncopal episode. Prescribed apixaban at that time, unclear if patient is taking. Noting patient is 8 months removed and with no signs of respiratory distress, will not anticoagulate at this time. 4. Hx of polysubstance abuse - Hx of cocaine and MJ use. MJ only on utox today. Discussed case with ED physician Aster after consultation with poison control center. Per poison control: Monitor ECG, mental status, and screen for co-ingestions. Code: Full Ppx: LMWH Diet: NPO pending improvement in mental status Dispo: Admit to ICU, M1 hold. Will likely require inpatient psychiatric treatment after stabilization
[2017-04-12 05:18] LABS: % IMMATURE GRANULYOCYTES 0.3 % (0.0-1.1); ABSOLUTE IMMATURE GRANULOCYTES 0.02 10^3/uL (0.00-0.10); ADD DIFF? NO; ADD MORPH? NO; ADD SCAN? NO; ATYPICAL LYMPHOCYTE FLAG 0 (0-99); FRAGMENT RBC FLAG 0 (0-99); HEMATOCRIT 42.4 % (40.0-51.0); HEMOGLOBIN 14.4 g/dL (13.7-17.5); LEFT SHIFT FLG 0 (0-99); LIPEMIA HEMOLYSIS FLAG 90 (0-99); MEAN CELL VOLUME 91.2 fL (81.5-99.8); MEAN PLATELET VOLUME 9.6 fL (8.7-11.7); PLATELET CLUMPS FLAG 10 (0-99); PLATELET COUNT 226 10^3/uL (150-400); RED BLOOD CELL COUNT 4.65 10^6/uL (4.40-6.38); RED CELL DISTRIBUTION WIDTH 13.1 % (11.5-15.2)
--- NOTE | 2017-04-12 05:51 | CPEKG ---
Heart Rate: 60 RR Interval: 1000 P-R Interval: 172 QRSD Interval: 88 QT Interval: 412 QTC Interval: 412 P [place]: -9 QRS [place]: 32 T Wave [place]: 42 EKG Severity - NORMAL ECG - EKG Impression: SINUS RHYTHM Electronically Signed By: Nehemias Camacho 13-Apr-2017 17:33:03
[2017-04-12 06:01] LABS: ALANINE AMINOTRANSFERASE 29 IU/L (21-72); ALBUMIN 3.2 g/dL (3.5-5.0); ALKALINE PHOSPHATASE 87 IU/L (38-126); ANION GAP 9 mEq/L (8-16); ASPARTATE AMINOTRANSFERASE 20 IU/L (17-59); BILIRUBIN,TOTAL 0.6 mg/dL (0.1-1.4); CARBON DIOXIDE 23 mEq/l (22-31); CHLORIDE 110 mEq/L (97-110); GLOMERULAR FILTRATION RATE > 60; GLUCOSE 88 mg/dL (70-100); POTASSIUM 4.1 mEq/L (3.5-5.2); SODIUM 142 mEq/L (134-144); TOTAL PROTEIN 6.2 g/dL (6.3-8.2)
--- NOTE | 2017-04-12 06:48 | CPEKG ---
Heart Rate: 79 RR Interval: 759 P-R Interval: 156 QRSD Interval: 88 QT Interval: 364 QTC Interval: 418 P [place]: -6 QRS [place]: 31 T Wave [place]: 21 EKG Severity - NORMAL ECG - EKG Impression: SINUS RHYTHM Electronically Signed By: Lizzie Rodarte 13-Apr-2017 00:23:44
[2017-04-12] MEDS: ENOXAPARIN 40 MG/0.4 ML SYR SC SCH (07:43)
--- NOTE | 2017-04-12 10:58 | CPEKG ---
Heart Rate: 64 RR Interval: 938 P-R Interval: 180 QRSD Interval: 92 QT Interval: 416 QTC Interval: 430 P [place]: 0 QRS [place]: 37 T Wave [place]: 48 EKG Severity - NORMAL ECG - EKG Impression: SINUS RHYTHM EKG Impression: ST ELEV, PROBABLE NORMAL EARLY REPOL PATTERN Electronically Signed By: Nehemias Camacho 13-Apr-2017 17:32:44
[2017-04-12] MEDS ORDERED: NS 1,000 ML IV SCH (11:00)
--- NOTE | 2017-04-12 14:06 | GCON ---
[f rep st] CONSULTATION STRAINER CLEANER CONSULTATION REASON FOR CONSULTATION: Overdose with Seroquel suicidal attempt. HISTORY OF PRESENT ILLNESS: This patient is a 51-year-old white male with a past medical history of pulmonary embolism and depression. He presents after taking an excessive amount of Seroquel, appar ently 28 of the 300 mg XR capsules. He then called EMS and was brought in to the emergency room. Eliane swanson was subsequently admitted to the intensive care unit. Currently, the patient is markedly somnolent, unable to provide much history. All history is gleane d from the medical record. PAST MEDICAL HISTORY: Again, significant for a pulmonary embolism and depression. PAST SURGICAL HISTORY: None. ALLERGIES: No known allergies to medications. SOCIAL HISTORY: Current daily smoker. Unknown alcohol use. Drug use: He apparently uses cocaine. PHYSICAL EXAM: VITAL SIGNS: Blood pressure is 120/77, pulse 61, respirations are 11, temperature i s 36.6, oxygen saturation 96% on room air. GENERAL: He is a well-developed, well-nourished, 51-yea r-old white male who is somewhat somnolent, but resting comfortably. HEENT: Eyes are [place], EOMI. Throat shows no erythema nor tonsillar hypertrophy. NECK: Supple. There is no cervical adenopathy . HEART: Regular rate and rhythm, without murmurs, rubs, or gallops. LUNGS: Clear to auscultatio n. No wheeze or rhonchi. ABDOMEN: Soft, nontender. Bowel sounds are present all 4 quadrants. EX TREMITIES: No clubbing, cyanosis, or edema. LABORATORIES: White count 7.6, hemoglobin 14, hematocrit 42, platelet count 226. Sodium 142, potas sium 4.1, chloride 110, CO2 is 23, BUN 18, creatinine 1, glucose is 88. Urine drug screen is non ne gative for marijuana. IMPRESSION: 1. Acute poisoning with Seroquel. 2. Suicide attempt. 3. History of depression. RECOMMENDATIONS: 1. Close cardiovascular monitoring. 2. Follow EKG closely. 3. DVT and PE prophylaxis. 4. Stress ulcer prophylaxis. 5. Once medically cleared, will consult Mental Health. Thank you very much. /[id number]/MODL
--- NOTE | 2017-04-12 14:15 | CPEKG ---
Heart Rate: 74 RR Interval: 811 P-R Interval: 160 QRSD Interval: 94 QT Interval: 404 QTC Interval: 449 P [place]: 25 QRS [place]: 62 T Wave [place]: 57 EKG Severity - ABNORMAL ECG - EKG Impression: SINUS RHYTHM EKG Impression: CONSIDER LEFT VENTRICULAR HYPERTROPHY Electronically Signed By: Nehemias Camacho 13-Apr-2017 17:32:33
[2017-04-12] MEDS ORDERED: HALOPERIDOL LACT 5 MG/ML INJ IVP PRN (21:00)
[2017-04-12] MEDS ORDERED: OLANZapine DISINTEGR 10 MG TAB PO ONE (21:00)
[2017-04-12] MEDS ORDERED: LORazepam 2 MG/ML INJ IVP PRN (21:02)
[2017-04-12] MEDS ORDERED: LORazepam 2 MG/ML INJ ONE (21:03)
[2017-04-12] MEDS ORDERED: LORazepam 2 MG/ML INJ IVP ONE (21:45)
--- NOTE | 2017-04-12 22:31 | HOSPPROG ---
Hospitalist Progress Note Assessment/Plan: Prolonged service in addition to the original time spent during Dr. Govea' s initial history and physical, direct patient care, [id number] with patient, at bedside, for 32 minutes, from 9:10 p.m. until 9:42 p.m., addressing the following: -patient was non directable and agitated earlier on shift, placing himself at risk, placed in wrist restraints and roll belt -he had a witnessed 5 second seizure thereafter -he was administered 2 mg of IV Ativan -he is currently protecting his airway and his vital signs are all stable -although he continues to be obtunded, he is minimally directable and is able to squeeze hand to command, able to somewhat visually track -that said, his physical exam continues to demonstrate significant horizontal nystagmus, some non directable movements, but he does have a visible pain response particularly when De [place] Garza catheter was placed -he was experiencing urinary retention with greater than 900 cc of urine in his bladder, De [place] Garza catheter placed -he will be on seizure precautions, q.1 hour neuro checks -will hold on risk further obtundation with antiepileptic, but will monitor him closely and if he experiences recurrent seizure, he will receive additional IV Ativan and then a Keppra load -I have discussed his situation with the night coverage, Dr. Govea Objective: Vital Signs Temp Pulse Resp BP Pulse Ox 36.6 C 76 16 112/86 H 99 04/12/17 08:00 04/12/17 22:00 04/12/17 22:00 04/12/17 22:00 04/12/17 22:00 Laboratory Results 04/12/17 05:10 04/12/17 05:10 04/11/17 04/12/17 04/13/17 05:59 05:59 05:59 Intake Total 1000 623 Output Total 1350 Balance 1000 -727 ICD10 Worksheet Patient Problems: Problems Problem Status Onset Adjustment disorder with depressed mood Acute Suicidal ideation Acute Attempted suicide Acute Polysubstance abuse Acute Pulmonary embolism Acute Severe major depression Acute Overdose Acute
[2017-04-13] MEDS: ENOXAPARIN 40 MG/0.4 ML SYR SC SCH (08:44)
--- NOTE | 2017-04-13 09:23 | CPEKG ---
Heart Rate: 68 RR Interval: 882 P-R Interval: 168 QRSD Interval: 86 QT Interval: 396 QTC Interval: 422 P [place]: -6 QRS [place]: 27 T Wave [place]: 32 EKG Severity - NORMAL ECG - EKG Impression: SINUS RHYTHM Electronically Signed By: Nehemias Camacho 13-Apr-2017 17:32:14
--- NOTE | 2017-04-13 09:36 | PDINTPN ---
Airline Radio Operator Progress Note Assessment/Plan: Assessment/plan: * Acute poisoning with Seroquel * Suicide attempt * Encephalopathy-markedly confused. * VT prophylaxis * Stress ulcer prophylaxis * Disposition-will consult mental health once patient medically cleared Subjective: Awake but not alert. Extremely confused. Hallucinating. Objective: Vital Signs Temp Pulse Resp BP Pulse Ox 36.7 C 68 18 135/91 H 94 04/13/17 07:38 04/13/17 08:04 04/13/17 08:04 04/13/17 08:04 04/13/17 08:04 Laboratory Results 04/12/17 05:10 04/12/17 05:10 04/12/17 04/13/17 04/14/17 05:59 05:59 05:59 Intake Total 1000 1523 Output Total 2900 Balance 1000 -1377 Physical Exam - Physical Exam General Appearance: no apparent distress, other (Diffuse), No alert EENT: PERRL/EOMI, normal ENT inspection, pharynx normal, TMs normal Neck: non-tender, full range of motion, supple, normal inspection Respiratory: chest non-tender, lungs clear, normal breath sounds Cardiac/Chest: normal peripheral pulses, regular rate, rhythm Peripheral Pulses: 2+: carotid (R), carotid (L), femoral (R), femoral (L), dorsalis-pedis (R), dorsalis-pedis (L) Abdomen: normal bowel sounds, non-tender, soft Male Genitalia: deferred Rectal: deferred Skin: normal color, warm/dry Extremities: normal range of motion, non-tender, normal inspection, normal capillary refill Neuro/Psych: No alert, No oriented x 3 ICD10 Worksheet Patient Problems: Problems Problem Status Onset Altered mental status Acute Overdose Acute Severe major depression Acute Suicidal ideation Acute Adjustment disorder with depressed mood Acute Attempted suicide Acute Polysubstance abuse Acute Pulmonary embolism Acute
--- NOTE | 2017-04-13 11:28 | HOSPPROG ---
Hospitalist Progress Note Assessment/Plan: 51 yo M w suicide attempt via seroquel overdose suicide: m1 hold TLC to see seizure: likely 2/2 seroquel has resolved no further workup unless continues no AED seroquel overdose: Qt ok no further seizures christine: remove med clearance: yes Subjective: more alert. case d/w dr gong. seizure overnight. ekg w normal Qt (interp by me) Objective: Vital Signs Temp Pulse Resp BP Pulse Ox 36.7 C 74 18 144/96 H 94 04/13/17 07:38 04/13/17 10:04 04/13/17 10:04 04/13/17 10:04 04/13/17 10:04 Laboratory Results 04/12/17 05:10 04/12/17 05:10 04/12/17 04/13/17 04/14/17 05:59 05:59 05:59 Intake Total 1000 1523 Output Total 2900 850 Balance 1000 -1377 -850 - Physical Exam Constitutional: no apparent distress, appears nourished Eyes: PERRL, anicteric sclera Ears, Nose, Mouth, Throat: moist mucous membranes, hearing normal Cardiovascular: regular rate and rhythym, no murmur, rub, or gallop Respiratory: no respiratory distress, no rales or rhonchi, clear to auscultation Gastrointestinal: normoactive bowel sounds, soft, non-tender abdomen Genitourinary: no bladder fullness, christine in urethra Skin: warm, normal color Musculoskeletal: full muscle strength Neurologic: AAOx3 ICD10 Worksheet Patient Problems: Problems Problem Status Onset Altered mental status Acute Overdose Acute Severe major depression Acute Suicidal ideation Acute Adjustment disorder with depressed mood Acute Attempted suicide Acute Polysubstance abuse Acute Pulmonary embolism Acute
[2017-04-13 20:05] VITALS: RESP 15
[2017-04-14 00:08] VITALS: BP 131/92; PULSE 66; TEMP 98.5; O2SAT 96
== END 2017-04-14 01:25 | DRG 917 ==
LOC: EDUNIT# → F2N 04-12 00:17
PROVIDERS: ADMIT Student in an Organized Health Care Education/Training Program; ATTEND Student in an Organized Health Care Education/Training Program
PROC: 0T9B8ZZ Drainage of Bladder, Via Natural or Artificial Opening Endoscopic (ICD-10-PCS; principal; 2017-04-12)
DX: T43.592A Poisoning by other antipsychotics and neuroleptics, intentional self-harm, initial encounter (principal); G93.40 Encephalopathy, unspecified; R45.851 Suicidal ideations; R56.9 Unspecified convulsions; F32.9 Major depressive disorder, single episode, unspecified; F12.90 Cannabis use, unspecified, uncomplicated; F17.210 Nicotine dependence, cigarettes, uncomplicated; F14.21 Cocaine dependence, in remission; R33.9 Retention of urine, unspecified; Z91.5 Personal history of self-harm; Z59.0 Homelessness; Z86.711 Personal history of pulmonary embolism
CPT/HCPCS: 80305; 92610-GN; 97162-GP; 97166-GO; G0480; J1650; J2060

== ENCOUNTER 2017-12-26 19:05 | Emergency (ER) | payer MEDICAID ==
[2017-12-26] MEDS ORDERED: OLANZapine DISINTEGR 5 MG TAB PO ONE (19:19)
--- NOTE | 2017-12-26 19:20 | EDPHY ---
H & P Stated Complaint: hearing voices and thinks things are chasing him Source: Patient, Old records Exam Limitations: Clinical condition - Personal History Current Tetanus/Diphtheria Vaccine: Yes Current Tetanus Diphtheria and Acellular Pertussis (TDAP): Yes Tetanus Vaccine Date: within 10 years date unknown - Medical/Surgical History Hx Asthma: No Hx Chronic Respiratory Disease: No Hx Diabetes: No Hx Cardiac Disease: Yes Hx Renal Disease: No Hx Cirrhosis: No Hx Alcoholism: No Hx HIV/AIDS: No Hx Splenectomy or Spleen Trauma: No Other PMH: Hep C, MITRAL VALVE PROLAPSE, PE non complaint on Blood thinner, gilma suarez at [facility], Depression, PTSD, anxiety, cociane abuse. closed head inj 1986. suicide attempt 04/11/2017 - Social History Smoking Status: Current every day smoker Time Seen by Provider: 12/26/17 19:19 HPI/ROS: HPI: This is a 52-year-old male who presents with Chief Complaint: hearing voices and thinks things are chasing him Location: psych Quality: Hearing voices, paranoid Duration: Since today Signs and Symptoms:+ paranoia, + homicidal ideation, + visual and auditory command hallucinations, + depression, + anxiety Timing: Acute on chronic Severity: Moderate to severe Context: Patient has a history of posttraumatic stress disorder, depression, anxiety presents voluntarily to the emergency room with 1 day history of seen demons that are actively telling him to harm himself and others. He reports that he cannot get the voices to stop. He is extremely anxious and feels that he is in danger. He reports that he used cocaine approximately 3 days ago. His depression medications were recently changed to Cymbalta and Seroquel. He has not had these medications in 1-2 days. Modifying Factors: None Comment: ROS: see HPI Constitutional: No fever, no chills, no weight loss Eyes: No blurred vision Respiratory: No shortness of breath, no cough Cardiovascular: No chest pain Gastrointestinal: No nausea, no vomiting, no diarrhea Genitourinary: No dysuria Extremities: No myalgias Neurologic: No weakness, no numbness Skin: No rashes Hematologic: No bruising, no bleeding MEDICAL/SURGICAL/SOCIAL HISTORY: Medical history: Hep C, MITRAL VALVE PROLAPSE, PE non complaint on Blood thinner , gilma suarez at [facility], Depression, PTSD, anxiety, cocaine abuse closed head inj 1987 suicide attempt 04/11/2017 Surgical history: Denies Social history: Smokes marijuana. Homeless. CONSTITUTIONAL: Untidy, adult male, hands over both ears pounding headache gets wall in the room, pacing back and forth in room, awake and alert, no obvious distress HEENT: Atraumatic and normocephalic, PERRL, EOMI. Tympanic membranes clear. Oropharynx clear, no exudate and moist pink mucosa. Airway patent. No lymphadenopathy. No meningismus. Cardiovascular: Normal S1/S2, regular rate, regular rhythm, without murmur rub or gallop. PULMONARY/CHEST: Symmetrical and nontender. Clear to auscultation bilaterally. Good air movement. No accessory muscle usage. ABDOMEN: Soft, nondistended, nontender, no rebound, no guarding, no peritoneal signs, no masses or organomegaly. No CVAT. EXTREMITIES: 2/2 pulses, strength 5/5, no deformities, no clubbing, no cyanosis or edema. NEUROLOGICAL: no focal neuro deficits. GCS 15. SKIN: Warm and dry, no erythema. no rash. Good capillary refill. PSYCH: Poor eye contact, + flight of ideas, tangential disorganized thought process, poor insight and judgment, + auditory and visual command hallucinations , suicidal ideation with a plan, homicidal ideation, + paranoid ([place]) Constitutional: Initial Vital Signs Temperature (C) 36.5 C 12/26/17 19:08 Heart Rate 71 12/26/17 19:08 Respiratory Rate 16 12/26/17 19:08 Blood Pressure 169/95 H 12/26/17 19:08 O2 Sat (%) 97 12/26/17 19:08 O2 Delivery Mode Room Air Allergies/Adverse Reactions: No Known Allergies Allergy (Verified 12/26/17 19:11) Home Medications: Medication Instructions Recorded DULoxetine [Cymbalta 60 MG (*)] 60 mg PO DAILY 04/13/17 Wellbutrin 100mg (*) 12/26/17 traZODone 12/26/17 Medical Decision Making ED Course/Re-evaluation: 1934: M1 hold placed due to patient being gravely disabled and a danger to himself and others. Labs and UDS ordered. Given Zyprexa 10 mg. 1955: Labs and UDS reviewed; UDS positive for marijuana and cocaine. Medically clear for mental health evaluation. 2330: Notified by mental health tooth inspector that they recommend keeping the patient overnight with reassessing in the a.m. Patient is well-known to them. They believe that the patient is malingering. 2345: Patient is currently sleeping soundly. 0005: Reassessed patient; somewhat restless. P.o. Ativan 2 mg given. End of shift. Signed over to Dr. Lin. This patient was seen under the supervision of my secondary supervising physician. I evaluated care for this patient independently. Discussed this patient with Dr. Lin. (Brittany Wong) 0500: Patient been sleeping. No acute events overnight. Patient here on M1 hold gravely disabled. Receive Zyprexa earlier, paranoid. History PTSD anxiety and depression. Patient will need re-evaluation this morning. 0700: Signed over to Dr. Arreola at 7am Shift-change. (Russell Lin) I did not see this patient while he was in the emergency department. However his care was discussed with the PA while the patient was in the department. I agree with treatment plan and management (Shai Marquez) Differential Diagnosis: Differential diagnosis includes but is not limited to functional in situational depression, paranoid schizophrenia, psychosis, intoxication. (Brittany Wong) Other Provider: Care assumed at 6:40 a.m. With plan for psychiatric evaluation. Patient has cocaine abuse with paranoia and psychosis, history of anxiety depression and PTSD. 1029: Mental health evaluation has been completed and the recommendation is to vacated the hold as the patient is able to contract for safety and he will go to the crisis office for further evaluation. It is the recommendation of the mental health evaluation team that the patient currently does not appear to be a danger to himself or others or be gravely disabled, is not currently meeting criteria for mental health hold. Patient seen by myself at this time, he denies suicidal ideation and is in agreement with the plan. He is intermittently hearing voices but contracts for safety. (Diogenes Arreola) - Data Points Laboratory Results: Laboratory Results 12/26/17 19:23 12/26/17 19:26 Medications Given: Discontinued Medications Lorazepam (Ativan) 2 mg PO EDNOW ONE Stop: 12/27/17 00:08 Last Admin: 12/27/17 01:44 Dose: 2 mg Olanzapine (Zyprexa Zydis) 5 mg PO EDNOW ONE Stop: 12/26/17 19:20 Last Admin: 12/26/17 21:09 Dose: Not Given Olanzapine (Zyprexa Zydis) 10 mg PO EDNOW ONE Stop: 12/26/17 19:34 Last Admin: 12/26/17 19:38 Dose: 10 mg Departure - Departure Disposition: Home, Routine, Self-Care Clinical Impression: Psychosis, paranoid, Cocaine use, Marijuana use Condition: Good Instructions: Cocaine Abuse (ED) Additional Instructions: Go to crisis center [facility] office for further evaluation now. Referrals: [facility],. [Clinic] - As per Instructions
[2017-12-26] MEDS ORDERED: OLANZapine DISINTEGR 5 MG TAB ONE (19:33)
[2017-12-26] MEDS ORDERED: OLANZapine DISINTEGR 10 MG TAB PO ONE (19:33)
[2017-12-26 19:36] LABS: PLATELET COUNT 335 10^3/uL (150-400)
[2017-12-27] MEDS ORDERED: LORazepam 1 MG TAB PO ONE (00:07)
[2017-12-27 10:49] VITALS: BP 126/84
== END 2017-12-27 10:49 | disposition home or self-care (01) ==
DX: F22 Delusional disorders (principal); F14.90 Cocaine use, unspecified, uncomplicated; F12.90 Cannabis use, unspecified, uncomplicated; F17.200 Nicotine dependence, unspecified, uncomplicated
CPT/HCPCS: 80305; G0480